=== PATIENT | male | born 1990 | race Caucasian/White ===

== ENCOUNTER 2021-08-31 23:10 | Emergency (ER) | payer OTHER, MEDICAID, SELFPAY ==
--- NOTE | 2021-08-31 23:19 | DI.RAD.S_ITS ---
PROCEDURE: XR CHEST 1V INDICATIONS: chest pain TECHNIQUE: One view of the chest was acquired. COMPARISON: None. FINDINGS: Surgical changes and devices: None. Lungs and pleura: Lungs are clear. No pleural effusions or pneumothorax. Mediastinum: Mediastinal contours appear normal. Heart size is normal. Bones and chest wall: No suspicious bony lesions. Overlying soft tissues appear unremarkable. IMPRESSION: No acute cardiopulmonary pathology. Dictated by: Siddharth Flynn M.D. on 08/31/2021 at 23:37 Approved by: Siddharth Flynn M.D. on 08/31/2021 at 23:37
[2021-08-31 23:20] VITALS: BP 123/80; PULSE 95; RESP 20; TEMP 37.2; O2SAT 100
--- NOTE | 2021-08-31 23:28 | ED.CHESTPAIN ---
HPI - Chest Pain General Chief Complaint: Chest Pain Stated Complaint: chest pain Time Seen by Provider: 08/31/21 23:28 Source: patient Mode of arrival: Ambulatory History of Present Illness HPI narrative: Patient is a 30-year-old male with no past medical history presenting today with feeling short of breath. He said he was sitting home resting when he suddenly felt like he could not take a deep breath. He is having some chest discomfort as well been fairly comfortable 2 hours. Denies any worsening is with exertion. He has pain in his biceps as well. His dad has a history of MO in his 70s mom has a history of congestive heart failure. He does smoke cigarettes. But denies any other marijuana or illicit drug use. He is anxious. He denies any fever or chills. No recent traveling. Denies any hemoptysis. Related Data Previous Rx's Medication Instructions Recorded buspirone 10 mg tablet 10 mg PO SEE INSTRUCTIONS #60 tab 06/08/16 hydrocodone 5 mg-acetaminophen 325 0 PO BID #15 tab 10/10/16 mg tablet (Radisson) Allergies Allergy/AdvReac Type Severity Reaction Status Date / Time No Known Drug Allergies Allergy Verified 08/31/21 23:59 Review of Systems Review of Systems Narrative: GENERAL: Denies chills, fatigue, malaise, fever, sweats, travel HEENT: Denies sinus pain, ear pain, sore throat, difficulty swallowing, neck pain RESPIRATORY: see HPI CARDIOVASCULAR: Denies chest pain, palpitations, orthopnea, edema GASTROINTESTINAL: Denies nausea, vomiting, abdominal pain, diarrhea, constipation, melena. : Denies dysuria, frequency, incontinence, hematuria, urinary retention, flank pain. MUSCULOSKELETAL: Denies weakness, joint pain, or bony pain SKIN: No rash, no erythema, no pruritus NEUROLOGIC: Denies weakness, dizziness, headache, numbness, change in speech, confusion PSYCHIATRIC: No concerning psychosocial issues. 12 point review of systems is negative except for those stated above and HPI Patient History Family History Father Age: 68 Hypertension High cholesterol Mother Age: 60 Heart disease Hypertension High cholesterol Mental health problem Exam Initial Vital Signs Initial Vital Signs: Vital Signs Temperature 99 F 08/31/21 23:20 Pulse Rate 95 H 08/31/21 23:20 Respiratory Rate 20 08/31/21 23:20 Blood Pressure 123/80 08/31/21 23:20 Pulse Oximetry 100 08/31/21 23:20 GENERAL: Alert 30-year-old male and in no acute distress. HEENT: Head atraumatic,EOMI, pupils reactive, face symmetric, moist mucous membranes CARDIOVASCULAR: Regular rate and rhythm without murmurs, rubs or gallops. RESPIRATORY: Breath sounds equal bilaterally, no wheezes rales or rhonchi. ABDOMEN: Soft, nontender. Normoactive bowel sounds all 4 quadrants. No guarding or rebound. EXTREMITIES: Normal range of motion, no clubbing or edema. Neurovascularly intact NEUROLOGICAL: Alert and oriented x4. SKIN: Warm, dry, no laceration, no petechiae, no rashes or lesions. Scores HEART Score Heart Score history: Slightly Suspicious Heart Score EKG: Normal Heart Score Age: < 45 years old Heart Score risk factors: 1-2 risk factors Heart Score troponin: < or = to normal limit Heart Score Total: 1 PERC Score Age greater than or equal to 50 years: No Heart rate greater than or equal to 100 bpm: No Room Air O2 Sat less than 95%: No Unilateral leg swelling: No Recent trauma or surgery: No Hemoptysis: No Prior PE or DVT: No Hormone Use: No Total PERC Score: 0 Course Orders Ordered: ED Orders 08/31/21 23:19 XR chest 1V Stat EKG-12 Lead Stat 08/31/21 23:20 Complete Blood Count AUTO DIFF Stat Comprehensive Metabolic Panel Stat Lipase Stat Magnesium Stat Troponin & CK Cardiac Panel Stat 08/31/21 23:40 COVID19 -Nasal swab/Pre-Proc Stat Discontinued Medications Albuterol (Albuterol Hfa Prepack) 1 box MISC SEEINSTR ONE Stop: 09/01/21 00:47 Last Admin: 09/01/21 01:04 Dose: 1 box Documented by: ALVIN Albuterol/Ipratropium (Albuterol/Ipratropium 3 Ml Ampul) 3 ml INH NOW ONE Stop: 08/31/21 23:40 Last Admin: 09/01/21 00:28 Dose: 3 ml Documented by: ALVIN Vital Signs Vital signs: Vital Signs - 8 hr 08/31/21 23:20 09/01/21 00:28 09/01/21 01:16 Temperature 99 F Pulse Rate 95 H 92 H 94 H Respiratory Rate 20 18 20 Blood Pressure 123/80 135/81 Pulse Oximetry 100 97 98 MDM - Chest Pain Lab Data Result diagrams: 08/31/21 23:20 08/31/21 23:20 Labs: Lab Results 08/31/21 08/31/21 08/31/21 Range/Units 23:20 23:20 23:40 WBC 11.4 H (4.5-11.0) X10^3/uL RBC 4.87 (4.5-5.9) X10^6/uL Hgb 16.1 (13.5-17.5) g/dL Hct 45.1 (41-53) % MCV 92.7 (80-100) fL MCH 33.0 (26-34) PG MCHC 35.6 (30-36) % RDW 13.3 (11.6-14.8) % Plt Count 274 (150-400) X10^3/uL Neut % (Auto) 69.6 (50-75) % Lymph % (Auto) 21.3 L (25-40) % Giles % (Auto) 7.9 (3-14) % Eos % (Auto) 0.8 L (2-4) % Baso % (Auto) 0.4 (0-2) % Neut # (Auto) 7900 H (1381-1100) /uL Lymph # (Auto) 2400 (3644-7001) /uL Giles # (Auto) 900 (0-900) /uL Eos # (Auto) 100 (0-450) /uL Baso # (Auto) 0 (0-100) /uL Sodium 139 (137-145) mmol/L Potassium 3.7 (3.4-5.1) mmol/L Chloride 102 (98-107) mmol/L Carbon Dioxide 33 H (22-32) mmol/L BUN 25 H (9-20) mg/dL Creatinine 0.90 (0.66-1.25) mg/dL Estimated GFR > 60.0 (>60) mL/min BUN/Creatinine Ratio 27.8 H (6-22) Glucose 112 H (70-100) mg/dL Calcium 9.6 (8.4-10.2) mg/dL Magnesium 1.9 (1.6-2.3) mg/dL Total Bilirubin 2.0 H (0.2-1.3) mg/dL AST 30 (17-59) IU/L ALT 27 (<50) IU/L Alkaline Phosphatase 67 (38-126) U/L Total Creatine Kinase 112 (55-170) U/L CK-MB (CK-2) 0.50 (<2.37) ng/mL CK-MB (CK-2) Rel Index 0.4 L (1.5-5.0) % Troponin I < 0.012 (0.01-0.034) ng/mL Total Protein 7.8 (6.3-8.2) g/dL Albumin 4.7 (3.5-5.0) g/dL Globulin 3.1 (1.7-4.1) g/dL Albumin/Globulin Ratio 1.5 (1.0-2.8) Lipase 50 (23-300) U/L SARS-CoV-2 (PCR) Negative (Negative) Imaging Data Chest x-ray: Radiologist's Impression: PROCEDURE:? XR CHEST 1V ? INDICATIONS:? chest pain ? TECHNIQUE:? One view of the chest was acquired.? ? COMPARISON:? None. ? FINDINGS:? ? Surgical changes and devices:? None.? ? Lungs and pleura:? Lungs are clear.? No pleural effusions or pneumothorax.? ? Mediastinum:? Mediastinal contours appear normal.? Heart size is normal.? ? Bones and chest wall:? No suspicious bony lesions.? Overlying soft tissues appear unremarkable.? ? IMPRESSION:? No acute cardiopulmonary pathology. ? ? Dictated by: Siddharth Flynn M.D. on 08/31/2021 at 23:37 ? ? ECG Data Interpretation: Normal sinus rhythm rate 87 IL interval 172 crit are S [address] changes no T-wave inversions MDM Narrative Medical decision making narrative: The patient is a young 30-year-old male with smoking history who presents feeling like he cannot take a deep breath. Symptoms improved with DuoNeb treatment. He is not hypoxic or tachycardic. Unlikely to be pulmonary embolism. He says that he has left arm pain but only when he sneezes. Other symptoms are not consistent with cardiac disease although he does have family history of MIs but not at a young age. At this time patient's symptoms are likely related to reactive airway disease rather than other etiology Discharge Plan Departure Patient Disposition: Home Clinical Impression: RAD (reactive airway disease) Instructions: DI for Reactive Airway Disease-Adult Activity Restrictions/Additional Instructions: *You have been diagnosed with reactive airway disease *What to do: At this time your symptoms are most consistent with asthma like symptoms. Blood work and x-ray are reassuring. I encourage you to stop smoking *Continue to take medications as directed Albuterol inhaler 1-2 puffs every 4 hours if needed for shortness of breath *Follow up with your primary care provider in 2-3 days or call [phone] *Return to ER if you should have increasing shortness of breath, chest pain, or any new, worsening or concerning symptoms Prescriptions: No Action buspirone 10 MG tablet 10 mg PO SEE INSTRUCTIONS Qty: 60 0RF hydrocodone-acetaminophen [Radisson] 5 MG/325 MG tablet 0 PO BID Qty: 15 0RF
[2021-08-31 23:55] LABS: Add Manual Diff / Slide Review NO; Basophils Absolute Auto 0 /uL (0-100); Basophils Percent Auto 0.4 % (0-2); Eosinophils Absolute Auto 100 /uL (0-450); Eosinophils Percent Auto 0.8 % (2-4); Hematocrit 45.1 % (41-53); Hemoglobin 16.1 g/dL (13.5-17.5); Lymphocytes Absolute Auto 2400 /uL (1100-4500); Lymphocytes Percent Auto 21.3 % (25-40); Mean Corpuscular HGB Conc 35.6 % (30-36); Mean Corpuscular Volume 92.7 fL (80-100); Monocytes Absolute Auto 900 /uL (0-900); Monocytes Percent Auto 7.9 % (3-14); Neutrophils Absolute Auto 7900 /uL (1500-7000); Neutrophils Percent Auto 69.6 % (50-75); Platelet Count 274 X10^3/uL (150-400); Red Blood Cell Count 4.87 X10^6/uL (4.5-5.9); Red Cell Distribution Width 13.3 % (11.6-14.8); White Blood Cell Count 11.4 X10^3/uL (4.5-11.0)
[2021-09-01 00:02] LABS: COVID19 -Nasal RAPID Negative (Negative)
[2021-09-01 00:04] LABS: Alanine Aminotransferase 27 IU/L (<50); Albumin 4.7 g/dL (3.5-5.0); Albumin Globulin Ratio 1.5 (1.0-2.8); Alkaline Phosphatase 67 U/L (38-126); Aspartate Aminotransferase 30 IU/L (17-59); BUN Creatinine Ratio 27.8 (6-22); Blood Urea Nitrogen 25 mg/dL (9-20); Calcium 9.6 mg/dL (8.4-10.2); Carbon Dioxide 33 mmol/L (22-32); Chloride 102 mmol/L (98-107); Creatine Kinase 112 U/L (55-170); Estimated Glomerular Filt Rate > 60.0 mL/min (>60); Globulin 3.1 g/dL (1.7-4.1); Glucose 112 mg/dL (70-100); HEMOLYSIS < 15 (0-50); Lipase 50 U/L (23-300); Magnesium 1.9 mg/dL (1.6-2.3); Potassium 3.7 mmol/L (3.4-5.1); Sodium 139 mmol/L (137-145); Total Protein 7.8 g/dL (6.3-8.2)
[2021-09-01 00:15] LABS: Troponin I < 0.012 ng/mL (0.01-0.034)
[2021-09-01 00:19] LABS: CKMB % Relative Index 0.4 % (1.5-5.0)
[2021-09-01 00:28] VITALS: PULSE 92; RESP 18; O2SAT 97
[2021-09-01] MEDS: ALBUTEROL/IPRATROPIUM 3 ML AMPUL INH (00:28)
[2021-09-01 01:04] VITALS: PULSE 94; RESP 18; O2SAT 98
[2021-09-01] MEDS: ALBUTEROL HFA PREPACK 1 BOX MISC (01:04)
[2021-09-01 01:16] VITALS: BP 135/81; PULSE 94; RESP 20; O2SAT 98
== END 2021-09-01 01:17 | disposition home or self-care (01) ==
PROVIDERS: Emergency Provider Emergency Medicine
DX: J45.909 Unspecified asthma, uncomplicated (principal); Z87.891 Personal history of nicotine dependence; Z20.822 Contact with and (suspected) exposure to COVID-19
CPT/HCPCS: 36415; 71045; 80053; 82550; 82553; 83690; 83735; 84484; 85025; 87635; 93005; 93010; 94640; 99284; C9803